=== PATIENT | male | born 1985 | race Caucasian/White ===

== ENCOUNTER → 2017-04-05 | Outpatient (CLI) | payer BC ==
[2017-04-05 13:45] LABS: SEMEN ANALYSIS VOLUME 2.5 mL (2.0-5.0)
[2017-04-05 13:48] LABS: SPERM MORPHOLOGY NORMAL FORMS >30 % (NORM >30)
== END | disposition home or self-care (01) ==
LOC: LAB 07:31
PROVIDERS: Obstetrics & Gynecology
DX: N46.9 Male infertility, unspecified (principal)